=== PATIENT | female | born 1960 | race Caucasian/White ===

== ENCOUNTER 2017-06-11 08:57 | Emergency (ER) | payer MEDICARE ==
[2017-06-11] MEDS ORDERED: Metoclopramide IV* 5 MG/ML 2 ML VIAL IV ONE (09:59)
[2017-06-11] MEDS ORDERED: diPHENhydraMINE IV* 50 MG/ML 1 ml VIAL (BENADRYL) IV ONE (09:59)
[2017-06-11 10:21] LABS: ABS Basophils 0.1 10^3/ul (0-0.2); ABS Eosinophils 0 10^3/ul (0-0.6); ABS Lymphocytes 1.5 10^3/ul (1.0-4.8); ABS Monocytes 0.4 10^3/ul (0-0.8); ABS Nucleated RBC 0 10^3/ul; Eosinophil % 0.6 % (0-6); Hematocrit 40 % (35-47); Hemoglobin 13.6 g/dl (12.0-16.0); Mean Corpuscular HGB Conc 35 g/dl (31-36); Mean Corpuscular Hemoglobin 34 pg (27-31); Mean Corpuscular Volume 99 fL (80-97); Mean Platelet Volume 7 um3 (7.4-10.4); Nucleated Red Blood Cells % 0; Platelet Count 294 10^3/ul (150-450); Red Blood Count 3.99 10^6/ul (4.0-5.4); Red Cell Distribution Width 13 % (10.5-15); White Blood Count 5.9 10^3/ul (3.5-10.8)
[2017-06-11 10:47] LABS: EGFR Non-African American 91.7 (>60)
--- NOTE | 2017-06-11 10:53 | RAD ---
HISTORY: Headache COMPARISONS: None TECHNIQUE: Multiple contiguous axial CT scans were obtained of the head without intravenous contrast. FINDINGS: HEMORRHAGE/INFARCT: There is no hemorrhage or acute infarct. MASSES/SHIFT: There is no mass or shift. EXTRA-AXIAL SPACES: There are no extra-axial fluid collections. SULCI AND VENTRICLES: The sulci and ventricles are normal in size and position for the patient's stated age. CEREBRUM: There are no focal parenchymal abnormalities. BRAINSTEM: There are no focal parenchymal abnormalities. CEREBELLUM: There are no focal parenchymal abnormalities. VESSELS: The vessels are grossly normal. PARANASAL SINUSES: The paranasal sinuses are clear. ORBITS: The orbits are unremarkable. BONES AND SOFT TISSUE: No bone or soft tissue abnormalities are noted. OTHER: None IMPRESSION: NO ACUTE INTRACRANIAL PATHOLOGY.
[2017-06-11 11:39] LABS: Urine Appearance Clear; Urine Blood Negative (Negative); Urine Color Straw; Urine Ketones Negative (Negative); Urine Protein Negative (Negative); Urine Specific Gravity 1.003 (1.010-1.030); Urine Urobilinogen Negative (Negative)
[2017-06-11 11:42] VITALS: BP 108/73
--- NOTE | 2017-06-12 08:06 | ED ---
Tato Sellers Angela, scribed for Remy Sherman MD on 06/11/17 at 1011 . Headache - HPI Summary HPI Summary: This pt is a 56 y/o female presenting to [facility] c/o headache today. She states she might have had a possible TIA 6 days ago. Pt reports that 6 days ago she woke up feeling tired "in an odd way." Pt continued about her day and later that day she saw her pupils were dilated and she had rapid heart beat. 5 days ago pt woke up feeling even more fatigue compared to the previous day and with a headache. She additionally notes she had difficulty with her thought process. Pt called her PCP today and was advised to come to the ED to be evaluated. Pt currently c/o headache. She states she has history of migraine but these symptoms are not the same. - History Of Current Complaint Chief Complaint: EDHeadache Stated Complaint: POSSIBLE TIA Time Seen by Provider: 06/11/17 09:46 Hx Obtained From: Patient Onset/Duration: Started days ago, Still Present Currently Pain Is: Moderate Timing: Constant Location of Headache: Diffuse Aggravating Factor: Nothing Allevating Factors: Nothing Associated Signs And Symptoms: Negative - Allergies/Home Medications Allergies/Adverse Reactions: Allergies Allergy/AdvReac Type Severity Reaction Status Date / Time Sulfa Antibiotics Allergy Unknown Verified 06/11/17 09:16 Reaction Details Home Medications: Home Medications NK [No Home Medications Reported] 06/11/17 [History Confirmed 06/11/17] PMH/Surg Hx/FS Hx/Imm Hx Endocrine/Hematology History: Denies: Hx Diabetes Cardiovascular History: Denies: Hx Hypertension Psychiatric History: Reports: Hx Anxiety, Hx Depression Infectious Disease History: No Infectious Disease History: Denies: Traveled Outside the [place] in Last 30 Days - Family History Known Family History: Negative: Hypertension, Diabetes - Social History Alcohol Use: None Substance Use Type: Reports: None Smoking Status (MU): Heavy Every Day Tobacco Smoker Review of Systems Positive: Fatigue - felt fatigued 6 days ago, now resolved. Negative: Fever, Chills Positive: Palpitations - rapid heart beat 6 days ago, now resolved Respiratory: Negative Gastrointestinal: Negative Genitourinary: Negative Musculoskeletal: Negative Positive: Headache All Other Systems Reviewed And Are Negative: Yes Physical Exam - Summary Physical Exam Summary: VITAL SIGNS: Reviewed. GENERAL: Patient is a well-developed and nourished female who is lying comfortable in the stretcher. Patient is not in any acute respiratory distress. HEAD AND FACE: No signs of trauma. No ecchymosis, hematomas or skull depressions. No sinus tenderness. EYES: PERRLA, EOMI x 2, No injected conjunctiva, no nystagmus. EARS: Hearing grossly intact. Ear canals and tympanic membranes are within normal limits. MOUTH: Oropharynx within normal limits. NECK: Supple, trachea is midline, no adenopathy, no JVD, no carotid bruit, no c- spine tenderness, neck with full ROM. CHEST: Symmetric, no tenderness at palpation LUNGS: Clear to auscultation bilaterally. No wheezing or crackles. CVS: Regular rate and rhythm, S1 and S2 present, no murmurs or gallops appreciated. ABDOMEN: Soft, non-tender. No signs of distention. No rebound no guarding, and no masses palpated. Bowel sounds are normal. EXTREMITIES: FROM in all major joints, no edema, no cyanosis or clubbing. NEURO: Alert and oriented x 3. No acute neurological deficits. Speech is normal and follows commands. SKIN: Dry and warm GCS: 15 Triage Information Reviewed: Yes Vital Signs On Initial Exam: Initial Vitals Temp Pulse Resp BP Pulse Ox 99.5 F 72 18 125/75 100 06/11/17 09:12 06/11/17 09:12 06/11/17 09:12 06/11/17 09:12 06/11/17 09:12 Vital Signs Reviewed: Yes Diagnostics - Vital Signs Vital Signs Temp Pulse Resp BP Pulse Ox 06/11/17 09:27 100 13 110/84 88 06/11/17 09:12 99.5 F 72 18 125/75 100 - Laboratory Result Diagrams: 06/11/17 10:10 06/11/17 10:10 Lab Statement: Any lab studies that have been ordered have been reviewed, and results considered in the medical decision making process. - CT Brain CT CT Interpretation: No Acute Changes - IMPRESSION: No acute intracranial pathology. Dr. Sherman has reviewed this radiology report. CT Interpretation Completed By: Radiologist Headache Course/Dx - Course Course Of Treatment: This pt is a 56 y/o female presenting to [facility] c/o headache today. She states she might have had a possible TIA 6 days ago. Pt reports that 6 days ago she woke up feeling tired "in an odd way." Pt continued about her day and later that day she saw her pupils were dilated and she had rapid heart beat. 5 days ago pt woke up feeling even more fatigue compared to the previous day and with a headache. She additionally notes she had difficulty with her thought process. Pt called her PCP today and was advised to come to the ED to be evaluated. Pt currently c/o headache. She states she has history of migraine but these symptoms are not the same. Test results within normal limits, except carbon monoxide of 8.2. Head CT is negative. In the ED course, she reports she smokes about 1 pack per day and probably thats why she has increased carbon monoxide. She was hydrated, was given Benadryl and Reglan, and all her symptoms resolved. She was also placed on oxygen and she is feeling better. Pt will be discharged home with follow up from PCP in the next 3 days. - Diagnoses Provider Diagnoses: Carbon monoxide poisoning, Headache Discharge - Discharge Plan Condition: Stable Disposition: HOME Patient Education Materials: Carbon Monoxide Poisoning (ED), General Headache ( ED) Referrals: Figueroa Horner MD [Primary Care Provider] - Additional Instructions: Please follow up with your primary care provider. RETURN TO THE ED FOR ANY WORSENING SYMPTOMS. The documentation as recorded by the Tato borja Angela accurately reflects the service I personally performed and the decisions made by , Remy Sherman MD.
== END 2017-06-11 11:40 | disposition home or self-care (01) ==
LOC: ED 08:57
DX: T58.91XA Toxic effect of carbon monoxide from unspecified source, accidental (unintentional), initial encounter (principal); R51 Headache
CPT/HCPCS: 36415; 70450; 80053; 80307; 81003; 82375; 85025; 85652; 96374; 96375; 99282; J1200; J2765